=== PATIENT | female | born 1950 | race African-American/Black ===

== ENCOUNTER 2024-03-24 10:45 | Emergency (ER) | payer MEDICARE, OTHER ==
[2024-03-24 12:52] LABS: #Basophils 0.04 10x3/uL (0.0-0.2); #Eosinophils 0.04 10x3/uL (0.0-0.5); #Monocytes 0.52 10x3/uL (0.0-1.1); #Neutrophils 8.95 10x3/uL (1.5-8.4); %Basophils 0.3 % (0.0-2.0); %Eosinophils 0.3 % (0.0-6.0); %Monocytes 4.5 % (0.0-10.0); %Neutrophils 78.1 % (40.0-75.0); Hematocrit 43.7 % (34.9-44.5); Hemoglobin 14.5 g/dL (12.0-15.5); Mean Corpuscular HGB CONC 33.2 g/dL (32.0-36.0); Mean Corpuscular Hemoglobin 28.2 pg (27.0-33.0); Mean Corpuscular Volume 84.9 fL (81.6-98.3); Mean Platelet Volume 8.7 fL (7.4-10.4); Platelet Count 339 10x3/uL (150-450); RBC Distribution Width 12.2 % (11.5-14.5); Red Blood Cell (RBC) Count 5.15 10x6/uL (3.90-5.03); White Blood Cell (WBC) Count 11.48 10x3/uL (3.5-10.5)
[2024-03-24 13:09] LABS: Anion Gap 13 mmol/L (10-20); BUN (Urea Nitrogen) 18 mg/dL (9.8-20.1); Calc. Creatinine Clearance 0 mL/min (70-130); Calcium 10.6 mg/dL (7.8-10.44); Carbon Dioxide 28 mmol/L (23-31); Chloride 103 mmol/L (98-107); Estimated GFR 96; Magnesium 2.1 mg/dL (1.6-2.6); Potassium 3.7 mmol/L (3.5-5.1); Sodium 140 mmol/L (136-145)
[2024-03-24 13:15] LABS: Critical Call Chemistry SJOS.OD @1315; Glucose 45 mg/dL (83-110)
[2024-03-24] MEDS ORDERED: Dextrose 50% Abboject 50 ML SYRINGE ONE (13:39)
[2024-03-24] MEDS ORDERED: Acetaminophen 500 MG TAB ONE (15:40)
== END 2024-03-24 15:35 | disposition home or self-care (01) ==
LOC: CSHERS 10:45
DX: E11.649 Type 2 diabetes mellitus with hypoglycemia without coma (principal); I10 Essential (primary) hypertension
CPT/HCPCS: 80048; 82962; 83735; 85025; J7999; 36415; 36416; 96374